=== PATIENT | male | born 1975 | race African-American/Black ===

== ENCOUNTER 2017-01-08 08:41 | Emergency (ER) | payer MEDICAID ==
[~2017-01-08] VITALS: Ht 190.5 cm; Wt 80.0 kg
[2017-01-08 08:43] VITALS: BP 132/78; PULSE 64; RESP 12; TEMP 98.6; O2SAT 99
[2017-01-08] MEDS ORDERED: SODIUM CHLOR 0.9% 1000 ML INJ 1,000 ML IV SCH (09:08)
--- NOTE | 2017-01-08 09:14 | PD ---
HPI Chief Complaint: Flank/Kidney Pain Time Seen by Provider: 09:03 Travel History International Travel<30 days: No Contact w/Intl Traveler<30days: No Traveled to known affect area: No History of Present Illness HPI Patient is a 41-year-old male who presents to emergency room complaints of mild to moderate left-sided flank pain which is intermittent in nature. Patient reports that last week, he was seen at an outside hospital, reports that he had a CT was abdomen and pelvis which showed a right-sided kidney stone. Patient reports that for the past few days, he has had increased pains to his left flank , reports that this pain does radiate to his left groin. Patient denies hematuria, urinary urgency or frequency, denies dysuria. Patient reports that prior to last week, he has never had a kidney stone in the past. Patient reports that he has had no fevers or chills, no nausea or vomiting. Patient was sent home with a prescription for Toradol as well as Zofran, reports that the Toradol is not helping him for his pain. He was also told to follow-up with his primary care doctor, reports that he does not have a primary care doctor to follow-up with. Patient with no constipation or diarrhea, no other complaints. PFSH Past Medical History Medical other: Yes (COLONOSCOPY ) Past Surgical History Surgical History: No Previous Surgery Social History Alcohol Use: No Tobacco Use: No Substance Use: No Allergies-Medications (Allergen,Severity, Reaction): Coded Allergies: No Known Allergies (Unverified , 01/08/17) Reported Meds & Prescriptions Reported Meds & Active Scripts Active No Active Prescriptions or Reported Medications Review of Systems General / Constitutional: No: Fever Eyes: No: Visual changes HENT: No: Headaches Cardiovascular: No: Chest Pain or Discomfort Respiratory: No: Shortness of Breath Gastrointestinal: No: Nausea, Vomiting, Diarrhea, Abdominal Pain Genitourinary: Positive: Flank Pain, No: Urgency, Dysuria, Hematuria, Hesitancy Musculoskeletal: No: Pain Skin: No Rash Neurologic: No: Weakness Psychiatric: No: Depression Endocrine: No: Polydipsia Hematologic/Lymphatic: No: Easy Bruising Physical Exam Narrative GENERAL: mild distress SKIN: Focused skin assessment warm/dry. HEAD: Atraumatic. Normocephalic. EYES: Pupils equal and round. No scleral icterus. No injection or drainage. ENT: No nasal bleeding or discharge. Mucous membranes pink and moist. NECK: Trachea midline. No JVD. CARDIOVASCULAR: Regular rate and rhythm. No murmur appreciated. RESPIRATORY: No accessory muscle use. Clear to auscultation. Breath sounds equal bilaterally. GASTROINTESTINAL: Abdomen soft, non-tender, nondistended. Hepatic and splenic margins not palpable. MUSCULOSKELETAL: No obvious deformities. No clubbing. No cyanosis. No edema. Patient with left sided flank pain NEUROLOGICAL: Awake and alert. No obvious cranial nerve deficits. Motor grossly within normal limits. Normal speech. PSYCHIATRIC: Appropriate mood and affect; insight and judgment normal. Data Data Last Documented VS Vital Signs Date Time Temp Pulse Resp B/P (MAP) Pulse Ox O2 Delivery O2 Flow Rate FiO2 01/08/17 09:41 16 97 Room Air 01/08/17 08:43 98.6 64 Orders Orders Complete Blood Count With Diff (01/08/17 09:08) Comprehensive Metabolic Panel (01/08/17 09:08) Urinalysis - C+S If Indicated (01/08/17 09:08) Iv Access Insert/Monitor (01/08/17 09:08) Ecg Monitoring (01/08/17 09:08) Oximetry (01/08/17 09:08) Morphine Inj (Morphine Inj) (01/08/17 09:15) Ondansetron Inj (Zofran Inj) (01/08/17 09:15) Sodium Chlor 0.9% 1000 Ml Inj (Ns 1000 M (01/08/17 09:08) Sodium Chloride 0.9% Flush (Ns Flush) (01/08/17 09:15) Us Kidney/Renal/Bladder (01/08/17 ) Ed Discharge Order (01/08/17 11:23) Labs Laboratory Tests Test 01/08/17 09:13 White Blood Count 3.4 TH/MM3 Red Blood Count 5.36 MIL/MM3 Hemoglobin 13.0 GM/DL Hematocrit 41.4 % Mean Corpuscular Volume 77.3 FL Mean Corpuscular Hemoglobin 24.3 PG Mean Corpuscular Hemoglobin Concent 31.5 % Red Cell Distribution Width 13.1 % Platelet Count 211 TH/MM3 Mean Platelet Volume 8.8 FL Neutrophils (%) (Auto) 57.0 % Lymphocytes (%) (Auto) 30.5 % Monocytes (%) (Auto) 10.9 % Eosinophils (%) (Auto) 1.3 % Basophils (%) (Auto) 0.3 % Neutrophils # (Auto) 1.9 TH/MM3 Lymphocytes # (Auto) 1.0 TH/MM3 Monocytes # (Auto) 0.4 TH/MM3 Eosinophils # (Auto) 0.0 TH/MM3 Basophils # (Auto) 0.0 TH/MM3 CBC Comment DIFF FINAL Differential Comment Urine Color LIGHT-YELLOW Urine Turbidity CLEAR Urine pH 6.5 Urine Specific [place] 1.011 Urine Protein NEG mg/dL Urine Glucose (UA) NEG mg/dL Urine Ketones NEG mg/dL Urine Occult Blood NEG Urine Nitrite NEG Urine Bilirubin NEG Urine Urobilinogen LESS THAN 2.0 MG/DL Urine Leukocyte Esterase TRACE Urine RBC LESS THAN 1 /hpf Urine WBC 1 /hpf Urine Mucus FEW /lpf Microscopic Urinalysis Comment CULT NOT INDICATED Blood Urea Nitrogen 11 MG/DL Creatinine 1.04 MG/DL Random Glucose 87 MG/DL Total Protein 7.8 GM/DL Albumin 4.3 GM/DL Calcium Level 9.4 MG/DL Alkaline Phosphatase 132 U/L Aspartate Amino Transf (AST/SGOT) 16 U/L Alanine Aminotransferase (ALT/SGPT) 23 U/L Total Bilirubin 1.0 MG/DL Sodium Level 138 MEQ/L Potassium Level 4.0 MEQ/L Chloride Level 103 MEQ/L Carbon Dioxide Level 30.0 MEQ/L Anion Gap 5 MEQ/L Estimat Glomerular Filtration Rate 96 ML/MIN MDM Medical Decision Making Medical Screen Exam Complete: Yes Emergency Medical Condition: Yes Medical Record Reviewed: Yes Interpretation(s) Vital Signs Date Time Temp Pulse Resp B/P (MAP) Pulse Ox O2 Delivery O2 Flow Rate FiO2 01/08/17 08:43 98.6 64 12 132/78 (96) 99 Differential Diagnosis Kidney stone, pyelonephritis, cystitis, musculoskeletal pain, electrolyte abnormality Narrative Course 41-year-old male who presents to emergency room with complaints of left-sided flank pain which is intermittent in nature and has been ongoing for the past few days. During the course of the patients emergency department visit, the patients history, examination, and differential diagnosis were reviewed with the patient. The patient was placed on a environmental monitoring technician with oximetry and frequent blood pressure monitoring. The patient had a 20-gauge IV access obtained and blood work sent for analysis. Given that patient has had a recent CT of his abdomen pelvis within the past week at an outside hospital, renal ultrasound was ordered as well as BMP to evaluate for renal function and UA. The patient was initially provided IV fluids, morphine as well as Zofran. The patients laboratory studies were reviewed and remarkable for: CBC & BMP Diagram 01/08/17 09:13 Total Protein 7.8, Albumin 4.3, Calcium Level 9.4, Alkaline Phosphatase 132 H, Aspartate Amino Transf (AST/SGOT) 16, Alanine Aminotransferase (ALT/SGPT) 23, Total Bilirubin 1.0 UA: few mucous, trace leuk esterase, 1wbc, less than 1 rbc, negative ketones, negative nitrite . Radiology studies were reviewed and remarkable for: Last Impressions Renal Ultrasound 01/08/17 0000 Signed Impressions: Service Date/Time: Tuesday, January 08, 2017 09:22 - CONCLUSION: 1. Unremarkable renal ultrasound examination. No evidence for obstructive uropathy or significant renal calculi. Eric Coronado MD Patient reevaluated, reviewed all labs and all studies with patient in detail. Renal ultrasound significant for no evidence of obstructive uropathy. Plan to have patient follow up with [facility] as well as Urologist, will have him return to ER as needed. Diagnosis Primary Impression: Lt flank pain Referrals: Alec Bustamante MD [facility] Patient Instructions: General Instructions Additional Instructions: Please provide patient with a copy of their lab work and studies at discharge* * Please follow up with your primary care doctor in 2-3 days Please follow up with a urologist Return to the ER if symptoms worsen or progress Return to the ER as needed Scripts No Active Prescriptions or Reported Meds Disposition: 01 DISCHARGE HOME Condition: Stable Janki Mata DO Jan 08, 2017 09:13
[2017-01-08] MEDS ORDERED: SODIUM CHLORIDE 0.9% FLUSH 10 ML FLUSH IV FLUSH PRN (09:15)
[2017-01-08] MEDS ORDERED: MORPHINE SULFATE 4 MG/ML INJ IV PUSH ONE (09:15)
[2017-01-08] MEDS ORDERED: ONDANSETRON HCL 4 MG/2 ML VIAL IVP ONE (09:15)
[2017-01-08 09:36] LABS: AUTOMATED NEUTROPHIL # 1.9 TH/MM3 (1.8-7.7); BASOPHIL % 0.3 % (0.0-2.0); EOSINOPHIL % 1.3 % (0.0-4.0); HEMATOCRIT 41.4 % (39.0-51.0); HEMO FLAGS DIFF FINAL; LYMPH % 30.5 % (9.0-44.0); MEAN CELL VOLUME 77.3 FL (80.0-100.0); MEAN CORPUSCULAR HEMOGLOBIN 24.3 PG (27.0-34.0); MEAN CORPUSCULAR HGB CONC 31.5 % (32.0-36.0); MONO % 10.9 % (0.0-8.0); PLATELET COUNT 211 TH/MM3 (150-450); RED BLOOD COUNT 5.36 MIL/MM3 (4.50-5.90); RED CELL DISTRIBUTION WIDTH 13.1 % (11.6-17.2); WHITE BLOOD COUNT 3.4 TH/MM3 (4.0-11.0)
[2017-01-08 09:41] VITALS: RESP 16; O2SAT 97
[2017-01-08 09:44] LABS: BLOOD, URINE NEG (NEG); COMMENT (UR) CULT NOT INDICATED; CULTURE IF INDICATED CULT NOT INDICATED; GLUCOSE,URINE NEG (NEG); KETONE, URINE NEG (NEG); MUCUS URINE FEW /lpf (OCC); NITRITE,URINE NEG (NEG); PH, URINE 6.5 (5.0-8.5); URINE COLOR LIGHT-YELLOW (YELLW/STRAW)
[2017-01-08 09:50] LABS: ANION GAP 5 MEQ/L (5-15); AST (GOT) 16 U/L (15-37); BLOOD UREA NITROGEN 11 MG/DL (7-18); CHLORIDE 103 MEQ/L (98-107); GLOMERULAR FILTRATION RATE 96 ML/MIN (>89); SODIUM (NA) 138 MEQ/L (136-145)
[2017-01-08 09:51] LABS: ALT (GPT) 23 U/L (12-78)
[2017-01-08 09:54] LABS: ALKALINE PHOSPHATASE 132 U/L (45-117)
--- NOTE | 2017-01-08 10:03 | RADRPT ---
EXAM DATE/TIME: 01/08/2017 09:22 [place] COMPARISON: No previous studies available for comparison. INDICATIONS : Flank pain. MEDICAL HISTORY : Flank pain. SURGICAL HISTORY : Colonoscopy. ENCOUNTER: Initial ACUITY: 2 weeks PAIN SCORE: 5/10 LOCATION: Bilateral flank MEASUREMENTS: RIGHT KIDNEY: 10.4 x 4.5 x 4.1 cm LEFT KIDNEY: 10.6 x 4.6 x 4.3 cm FINDINGS: RIGHT KIDNEY: Renal cortex is normal in thickness and echotexture. No hydronephrosis, stone, or mass. LEFT KIDNEY: Renal cortex is normal in thickness and echotexture. No hydronephrosis, stone, or mass. BLADDER: Within normal limits given the degree of distension. CONCLUSION: 1. Unremarkable renal ultrasound examination. No evidence for obstructive uropathy or significant tami al calculi. Eric Coronado MD on January 08, 2017 at 10:00 Board Certified Radiologist. This report was verified electronically.
[2017-01-08 12:10] VITALS: BP 113/72
== END 2017-01-08 12:11 | disposition home or self-care (01) ==
LOC: NEPD 08:41
DX: R10.9 Unspecified abdominal pain (principal)
CPT/HCPCS: 76775; 80053; 81001; 85025; 96361; 96374; 96375; 99285; J2270; J2405; J7030